=== PATIENT | male | born 2000 | race American Indian/Alaskan Native ===

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

== ENCOUNTER 2021-03-28 04:43 | Emergency (ER) | payer SELFPAY ==
[2021-03-28 04:48] VITALS: BP 137/60
[2021-03-28] MEDS ORDERED: AMOXICILLIN/K CLAV 875/125MG TAB PO ONE (06:06)
[2021-03-28] MEDS ORDERED: traMADol 50 MG TAB PO ONE (06:06)
--- NOTE | 2021-03-28 06:37 | Emergency Department Report ---
ED ENT HPI - General Chief complaint: Dental/Oral Stated complaint: DENTAL PAIN, VALDEZ Time Seen by Provider: 03/28/21 06:10 Source: patient Mode of arrival: Ambulatory Limitations: No Limitations - History of Present Illness MD complaint: tooth pain -: week(s) (2) Severity: severe Severity scale (0 -10): 10 Consistency: constant Improves with: none Worsens with: eating, other (Palpation, chewing) Context- Dental: history of dental caries Associated Symptoms: gum swelling, toothache, other (Headache). denies: fever, cough, pain with swallowing, sore throat, tinnitus, hearing loss, discharge from ear, rhinorrhea - Related Data Previous Rx's Medication Instructions Recorded Last Taken Type Ketorolac [Toradol] 10 mg PO Q6H PRN #20 03/28/21 Unknown Rx Penicillin V Potassium 500 mg PO Q6H #40 03/28/21 Unknown Rx Allergies Allergy/AdvReac Type Severity Reaction Status Date / Time No Known Allergies Allergy Unverified 11/20/12 09:23 ED Dental HPI - General Chief complaint: Dental/Oral Stated complaint: DENTAL PAIN, VALDEZ Time Seen by Provider: 03/28/21 06:10 Source: patient Mode of arrival: Ambulatory Limitations: No Limitations - Related Data Previous Rx's Medication Instructions Recorded Last Taken Type Ketorolac [Toradol] 10 mg PO Q6H PRN #20 03/28/21 Unknown Rx Penicillin V Potassium 500 mg PO Q6H #40 03/28/21 Unknown Rx Allergies Allergy/AdvReac Type Severity Reaction Status Date / Time No Known Allergies Allergy Unverified 11/20/12 09:23 ED Review of Systems ROS: Stated complaint: DENTAL PAIN, VALDEZ Other details as noted in HPI Comment: All other systems reviewed and negative ENT: dental pain Neurological: headache ED Past Medical Hx - Social History Smoking Status: Never Smoker Substance Use Type: None - Medications Home Medications: Home Medications Medication Instructions Recorded Confirmed Last Taken Type Ketorolac [Toradol] 10 mg PO Q6H PRN #20 03/28/21 Unknown Rx Penicillin V Potassium 500 mg PO Q6H #40 03/28/21 Unknown Rx ED Physical Exam - General Limitations: No Limitations General appearance: alert, in no apparent distress - Head Head exam: Present: atraumatic, normocephalic, normal inspection - Eye Eye exam: Present: normal appearance, PERRL, EOMI Pupils: Present: normal accommodation - ENT ENT exam: Present: mucous membranes moist - Expanded ENT Exam Expanded Mouth exam: Present: normal external inspection Teeth exam: Present: dental caries, dental tenderness # 1 - Dental Tenderness, Other (Severe dental decay to the with associated mild swelling but no obvious abscess) Throat exam: Positive: normal inspection - Neck Neck exam: Present: normal inspection, full ROM. Absent: meningismus - Respiratory Respiratory exam: Absent: respiratory distress - Cardiovascular Cardiovascular Exam: Present: regular rate - Neurological Exam Neurological exam: Present: alert, oriented X3, CN II-XII intact, normal gait - Psychiatric Psychiatric exam: Present: normal affect, normal mood - Skin Skin exam: Present: intact ED Course Vital Signs 03/28/21 04:44 Temperature 98.0 F Pulse Rate 63 Respiratory 18 Rate Blood Pressure 137/60 [Right] O2 Sat by Pulse 100 Oximetry Critical care attestation.: If time is entered above; I have spent that time in minutes in the direct care of this critically ill patient, excluding procedure time. ED Disposition Clinical Impression: Pain due to dental caries Disposition: HOME / SELF CARE / HOMELESS Is pt being admited?: No Does the pt Need Aspirin: No Condition: Stable Instructions: Dental Caries, Pediatric Additional Instructions: It is important that you make an appointment with a dentist for continued care of your teeth. In the meantime take the penicillin and pain meds as prescribed. Recommend doing warm salt water rinses. Return to the ER for symptoms worsens or changes in any way Prescriptions: Penicillin V Potassium 500 mg PO Q6H #40 Ketorolac [Toradol] 10 mg PO Q6H PRN #20 PRN Reason: Pain Referrals: PRIMARY CARE,MD [Primary Care Provider] - 3-5 Days Forms: Work/School Release Form(ED) Time of Disposition: 06:36
== END 2021-03-28 06:54 | disposition home or self-care (01) ==
LOC: ED 04:43
DX: K02.9 Dental caries, unspecified (principal)
CPT/HCPCS: 99282

== ENCOUNTER 2021-06-08 13:26 | Emergency (ER) | payer SELFPAY ==
[2021-06-08 13:50] VITALS: BP 127/44
--- NOTE | 2021-06-08 13:54 | Event Note ---
ED Screening Note ED Screening Note: L ANKLE PAIN- MEDIAL This initial assessment/diagnostic orders/clinical plan/treatment(s) is/are subject to change based on patients health status, clinical progression and re- assessment by fellow clinical providers in the ED. Further treatment and workup at subsequent clinical providers discretion. Patient/guardian urged not to elope from the ED as their condition may be serious if not clinically assessed and managed. Initial orders include: XR RO FX
--- NOTE | 2021-06-08 15:51 | XRay Report ---
LEFT ANKLE 3 VIEWS 1404 INDICATION: PAIN SP FALL COMPARISON: None available. FINDINGS: Mild diffuse soft tissue swelling is seen. Bony densities in the area of the ankle and prox imal foot are thought most likely old and appear corticated as best can be determined. A tiny avulsio n is not excluded newly tip of the lateral malleolus and dorsal to the navicular but not strongly fav ored. No definite acute fractures are seen. No dislocation is noted. Signer Name: David Arzola MD Signed: 06/08/2021 3:47 PM Workstation Name: [id number]
[2021-06-08] MEDS ORDERED: oxyCODONE /ACETAMINOPHEN 5-325MG TAB PO ONE (18:05)
--- NOTE | 2021-06-08 19:56 | Emergency Department Report ---
ED Lower Extremity HPI - General Chief Complaint: Extremity Injury, Lower Stated Complaint: LT ANKLE INJURY Time Seen by Provider: 06/08/21 13:54 Source: patient Mode of arrival: Ambulatory Limitations: No Limitations - History of Present Illness Initial Comments: 21-year-old black male presents to the emergency department for evaluation of left ankle pain and swelling. He states that on Monday while playing basketball, he rolled his left ankle and has had increasing pain and swelling since then. He states that pain is 7 out of 10 and worse with any type of weightbearing. MD Complaint: ankle injury -: Sudden Injury: Ankle: Left Type of Injury: other (Rolled while playing basketball) Place: street/outdoors Severity: moderate Severity scale (0 -10): 7 Improves With: NSAID, cold therapy, immobilization Worsens With: weight bearing Associated Symptoms: swelling, able to partially bear weight Treatments Prior to Arrival: cold therapy, NSAIDS, splint - Related Data Previous Rx's Medication Instructions Recorded Last Taken Type Ketorolac [Toradol] 10 mg PO Q6H PRN #20 03/28/21 Unknown Rx Penicillin V Potassium 500 mg PO Q6H #40 03/28/21 Unknown Rx Naproxen [Naprosyn] 500 mg PO BID #14 tab 06/08/21 Unknown Rx Allergies Allergy/AdvReac Type Severity Reaction Status Date / Time No Known Allergies Allergy Verified 06/08/21 13:33 ED Review of Systems ROS: Stated complaint: LT ANKLE INJURY Other details as noted in HPI Comment: All other systems reviewed and negative Constitutional: denies: chills, fever Respiratory: denies: shortness of breath, SOB with exertion, SOB at rest Cardiovascular: denies: chest pain, palpitations Gastrointestinal: denies: abdominal pain, nausea, vomiting Musculoskeletal: denies: back pain Neurological: denies: headache, weakness ED Past Medical Hx - Past Medical History Previous Medical History?: No - Social History Smoking Status: Never Smoker Substance Use Type: None - Medications Home Medications: Home Medications Medication Instructions Recorded Confirmed Last Taken Type Ketorolac [Toradol] 10 mg PO Q6H PRN #20 03/28/21 Unknown Rx Penicillin V Potassium 500 mg PO Q6H #40 03/28/21 Unknown Rx Naproxen [Naprosyn] 500 mg PO BID #14 tab 06/08/21 Unknown Rx ED Physical Exam - General Limitations: No Limitations General appearance: alert, in no apparent distress - Head Head exam: Present: normocephalic - Eye Eye exam: Present: normal appearance. Absent: conjunctival injection - Neck Neck exam: Present: normal inspection - Respiratory Respiratory exam: Absent: respiratory distress - Cardiovascular Cardiovascular Exam: Present: regular rate - GI/Abdominal GI/Abdominal exam: Absent: distended - Expanded Lower Extremity Exam Left Ankle exam: Present: tenderness, swelling. Absent: normal inspection, full ROM, abrasion, laceration, ecchymosis, deformity, crepidus, dislocation, erythema Foot/Toe exam: Present: swelling Neuro vascular tendon exam: Present: no vascular compromise. Absent: pulse deficit, abnormal cap refill, motor deficit, sensory deficit, extremity cold to touch Gait: Positive: observed and limited by pain - Back Exam Back exam: Present: normal inspection - Neurological Exam Neurological exam: Present: alert, oriented X3 - Psychiatric Psychiatric exam: Present: normal affect, normal mood - Skin Skin exam: Present: warm, dry, intact, normal color ED Course Vital Signs 06/08/21 13:48 Temperature 98.3 F Pulse Rate 77 Respiratory 18 Rate Blood Pressure 127/44 O2 Sat by Pulse 99 Oximetry - Orthopedic Splinting/Casting Injury #1 Side: left Lower Extremity Injury Location: ankle Lower Extremity Immobilizer: posterior splint ([place] splint), stirrup splint Other Orthopedic Equipment: crutches Additional Comments: CMS intact after splint placed. ED Lower Extremity MDM - Radiology Data Radiology results: report reviewed, image reviewed Left ankle x-ray: FINDINGS: Mild diffuse soft tissue swelling is seen. Bony densities in the area of the ankle and proximal foot are thought most likely old and appear corticated as best can be determined. A tiny avulsion is not excluded newly tip of the lateral malleolus and dorsal to the navicular but not strongly favored. No definite acute fractures are seen. No dislocation is noted. - Medical Decision Making 21-year-old black male presents to the emergency department for evaluation of left ankle pain and swelling. He states that on Monday while playing basketball, he rolled his left ankle and has had increasing pain and swelling since then. He states that pain is 7 out of 10 and worse with any type of weightbearing. X-ray with possible avulsion fracture, patient unable to bear weight and has significant swelling to ankle; therefore patient will be placed in a Brock splint, given crutches, and advised to follow-up with orthopedics for further evaluation and management. He verbalized understanding of and agreement with plan of care. Critical care attestation.: If time is entered above; I have spent that time in minutes in the direct care of this critically ill patient, excluding procedure time. ED Disposition Clinical Impression: Pain and swelling of ankle Qualifiers: Laterality: left Qualified Code(s): M25.572 - Pain in left ankle and joints of left foot Disposition: HOME / SELF CARE / HOMELESS Is pt being admited?: No Does the pt Need Aspirin: No Condition: Stable Instructions: How to Use Cold Therapy, [id number], Cast or Splint Care, Adult, [id number], Ankle Pain Additional Instructions: Take medication as prescribed. Use splint and crutches for the next 6 or 7 days. If no improvement or worsening symptoms follow-up with orthopedics for further evaluation and management. Return to the emergency department as needed. Prescriptions: Naproxen [Naprosyn] 500 mg PO BID #14 tab Referrals: LISA DUMONT MD [Referring] - 3-5 Days MARIAH ODONNELL MD [Staff Physician] - 3-5 Days Forms: Work/School Release Form(ED) Time of Disposition: 19:56
== END 2021-06-08 20:14 | disposition home or self-care (01) ==
LOC: ED 13:26
DX: M25.572 Pain in left ankle and joints of left foot (principal)
CPT/HCPCS: 99283